=== PATIENT | female | born 1960 | race Caucasian/White ===

== ENCOUNTER → 2016-09-19 | Outpatient (CLI) | payer BC | LOC: KOH-I 16:11 | DX: M25.562 Pain in left knee (principal); M25.862 Other specified joint disorders, left knee | CPT/HCPCS: 73562 ==

== ENCOUNTER → 2016-09-23 | Outpatient (CLI) | payer BC | LOC: NM 07:32 | DX: M89.8X5 Other specified disorders of bone, thigh (principal); D16.9 Benign neoplasm of bone and articular cartilage, unspecified; M25.562 Pain in left knee; R93.8 Abnormal findings on diagnostic imaging of other specified body structures | CPT/HCPCS: 78306; A9503 ==

== ENCOUNTER → 2016-11-04 | Outpatient (CLI) | payer BC | LOC: KOH-I 10-28 10:30 → MRI 09:00 | DX: M70.52 Other bursitis of knee, left knee (principal) | CPT/HCPCS: 36415; 73723; 82565; 84520; A9577 ==